=== PATIENT | male | born 1995 | race Native Hawaiian/Other Pacific Islander ===

== ENCOUNTER 2020-03-08 11:40 | Emergency (ER) | payer OTHER ==
[~2020-03-08] VITALS: Ht 175.3 cm; Wt 97.5 kg
[2020-03-08 12:05] VITALS: TEMP 98.5
[2020-03-08 15:43] LABS: PLATELET COUNT 229 K/uL (142-355)
[2020-03-08 15:49] LABS: POTASSIUM 4.4 mmol/L (3.6-5.2)
[2020-03-08 16:38] VITALS: BP 157/90
== END 2020-03-08 16:38 | disposition home or self-care (01) ==
LOC: ED 11:40
PROVIDERS: Emergency Medicine Emergency Medical Services
DX: B34.9 Viral infection, unspecified (principal)
CPT/HCPCS: 80053; 82550; 84443; 85027; 96360; 99284